=== PATIENT | female | born 1985 | race Caucasian/White ===

== ENCOUNTER 2017-10-20 12:59 | Emergency (ER) | payer OTHER ==
[2017-10-20 13:24] VITALS: BP 158/107
== END 2017-10-20 14:42 | disposition left against medical advice (07) ==
LOC: ED 12:59
DX: Z53.9 Procedure and treatment not carried out, unspecified reason (principal)

== ENCOUNTER 2017-10-22 14:35 | Outpatient (CLI) | payer OTHER ==
--- NOTE | 2017-10-22 17:43 | XRAY Report ---
FOUR VIEW BILATERAL WRISTS: 10/22/2017 CLINICAL INDICATION: Fall, pain. FINDINGS: AP, lateral, oblique, scaphoid views of the bilateral wrists demonstrate no evidence of fracture or dislocation. The joint spaces are preserved. No radiopaque foreign body is seen in the soft tissues. IMPRESSION: NORMAL BILATERAL WRISTS. TD: 10/22/2017 15:47
== END 2017-10-22 14:36 | disposition home or self-care (01) ==
LOC: DI 14:35
PROVIDERS: ATTEND Family Medicine
DX: S63.502A Unspecified sprain of left wrist, initial encounter (principal); S60.211A Contusion of right wrist, initial encounter

== ENCOUNTER 2017-11-25 15:24 | Outpatient (CLI) | payer OTHER ==
--- NOTE | 2017-12-01 18:45 | MRI Report ---
Procedure Date: 11/25/2017 Accession Number: [id number] / [id number] Procedure: MRI - Wrist RT W/O CPT Code: FULL RESULT: EXAM: RIGHT WRIST MRI WITHOUT CONTRAST EXAM DATE: 11/25/2017 04:00 PM. CLINICAL HISTORY: Pain right wrist status post contusion 10/20/17. COMPARISON: Bilateral wrists 10/22/2017. TECHNIQUE: Examination of the right wrist is limited to 3 sequences secondary to patient claustrophobia: 1. Axial T1-weighted. 2. Axial T2-weighted fat saturation. 3. Coronal T1-weighted. FINDINGS: Negative for carpal bone fracture. Negative for distal radius or distal ulna fracture. Uniform intercarpal distance. Evaluation of the intrinsic carpal ligaments compromised on a single coronal T1-weighted sequence. There is a small fluid collection at the distal radioulnar joint. The distal radioulnar joint is negative for dislocation. Unable to assess for triangular fibrocartilage tear on the coronal T1-weighted sequence. The carpal tunnel is grossly normal. Negative for tenosynovitis. Skin markers placed at the dorsal aspect of the distal carpal row with no extensor tenosynovitis identified. There is mild tenosynovitis extensor carpi radialis longus tendon at the radiocarpal compartment. IMPRESSION: 1. Examination compromised secondary to limited coronal T1-weighted, axial T2-weighted fat saturation, and axial T1-weighted acquisitions secondary to patient claustrophobia. 2. Negative for carpal bone fracture. 3. Negative for tenosynovitis as cause for dorsum wrist pain at the site of skin marker. RADIA MUSCULOSKELETAL RADIOLOGY SECTION
== END 2017-11-25 15:25 | disposition home or self-care (01) ==
LOC: DI 15:24
PROVIDERS: ATTEND Family Medicine
DX: S63.502D Unspecified sprain of left wrist, subsequent encounter (principal); S63.501D Unspecified sprain of right wrist, subsequent encounter

== ENCOUNTER 2020-07-08 13:41 | Outpatient (CLI) | payer OTHER ==
[2020-07-09 13:29] VITALS: BP 140/80
--- NOTE | 2020-07-09 13:29 | SLEEP CARE CONSULTATION ---
Information from patient questionnaire entered by Ivonne Mark. I have reviewed and concur with the information entered by Ivonne Mark. This document represents the service I personally performed and the decisions made by me, Leonor Jiménez MD, [facility]. History of Present Illness Service Date and Time: 07/08/2020 1341 Reason for Visit: New patient Chief Complaint: reports: Other (clearance for weight loss surgery) Date of Onset: no symptoms Usual bedtime: 10:30 - 11 pm Time it takes to fall asleep: 10-15 minutes Snores at night: Yes Observed to quit breathing while asleep: No Sleeps alone due to snoring: No Number of times waking at night: none Toss, Turn, or Twitch while sleeping: No Recalls having dreams: Yes Usually gets out of bed at: 7:30- 8 am Feels refreshed in the morning: Yes Morning headache: No Sleepy or fatigued during the day: No Ever fallen asleep while driving: No Takes day naps: No Dreams during day naps: No Prior sleep studies: No Additional HPI information: I have the pleasure of seeing Ms. White today regarding the possibility of her having obstructive sleep apnea. As you know, she is a 34 year old lady who is anticipating bariatric surgery and a sleep study is a required preoperative workup. She states that she snores but her has never seen her quit breathing. She denies waking up frequently at night, choking, unrefreshed sleep, morning headache, and excessive daytime sleepiness. She does not have hypertension or heart disease. - Parasomnia Symptoms Ever been unable to move upon waking from sleep: No Ever felt weak in the knees when startled or emotional: No Bothered by creepy, crawly, restless sensations in legs: No Problems with memory or concentration: No Subjective Initial Eunice Sleepiness Scale score: 0 (in 2020) Past Medical History Past Medical History: reports: Anxiety, Other (high pulse) Social History The patient's occupation is a [employer]. Patient is and lives in [place]. Have you smoked in the past 12 months: No Alcohol use: No Caffeine use: Yes Caffeine amount and frequency: 1-2 black teas a week Family History Family history of sleep disordered breathing: Yes (brother, dad) Family Hx Sleep Apnea: Father: Snoring, Sibling: Sleep apnea - Treated Allergies and Home Medications Drug allergies reviewed: Yes Home medication list reviewed: Yes Review of Systems Weight loss over past 5 years: 10 Cardiovascular: denies: high blood pressure, palpitations, chest pain, irregular heart rate or pulse, leg or foot swelling, have to sleep sitting up, other Respiratory: denies: shortness of breath, wheeze, sputum production, chronic cough, other Gastrointestinal: denies: heartburn, difficulty swallowing, nausea, vomitting, diarrhea, abdominal pain, other Urinary: denies: incontinence, frequency, urgency, impotence, other Neurological: denies: headaches, seizure, head trauma, disorientation, speech dysfunction, gait or balance problems, fainting or unconsciousness, other Psychiatric: reports: anxiety Ear/Nose/Throat: reports: sinus problems Endocrine: denies: thyroid disease, history of goiter, sluggishness, too hot or cold, excessive thirst, increased appetite, increased urination, unexplained weakness, other Musculoskeletal: denies: joint pain, neck pain, back pain, joint swelling, muscle pain or cramping, mobility problems, other Immunologic: denies: sneezing, rash, itching, allergies to food or environment, other Physical Exam Blood Pressure: 140/80 Cuff size: regular Heart Rate: 92 O2 Saturation: 97 Height: 5 ft 8 in Neck circumference: 15.75 HEENT: No craniofacial malformation Nostrils: patent to airflow Turbinates: normal Septum: midline Mouth and throat: narrow oropharynx Soft palate: normal Hard palate: normal Uvula: normal Uvula visualization: 25% Mallampati Class III Tongue: normal in size Tonsils: small Chin and jaw: normal size and position Impression and Plan IMPRESSION: 1. Possible Obstructive Sleep Apnea-Hypopnea Syndrome, as suggested by history of loud snore. Narrow oropharynx and obesity are common predisposing factors for obstructive sleep apnea-hypopnea syndrome. I recommend proceeding to polysomnography to confirm the diagnosis and to assess severity. I informed the patient of what the sleep studies involve and after some discussion, she would like to proceed with a home sleep apnea test (HSAT). Plan: 1. Schedule a home sleep apnea test (HSAT). 2. Avoid long distance driving or when feeling sleepy. 3. Avoid alcohol, sedative and muscle relaxant around bedtime. 4. Attempt to lose weight. 5. Return for follow up after the test. Visit Type: In Office Provider Statement: I spent 100% of the Face to Face Visit with the patient with greater than 50% spent counseling the patient and coordination of care.
== END 2020-07-08 13:42 | disposition home or self-care (01) ==
LOC: SC 13:41
PROVIDERS: ATTEND Internal Medicine Pulmonary Disease
DX: R06.83 Snoring (principal)
CPT/HCPCS: 99202; 99212

== ENCOUNTER 2020-07-26 09:55 | Outpatient (CLI) | payer OTHER | END 2020-07-26 09:56 | disposition home or self-care (01) | LOC: SC 09:55 | PROVIDERS: ATTEND Internal Medicine Pulmonary Disease | DX: G47.33 Obstructive sleep apnea (adult) (pediatric) (principal) | CPT/HCPCS: 95806 ==

== ENCOUNTER 2020-08-05 15:44 | Outpatient (CLI) | payer OTHER ==
--- NOTE | 2020-08-05 16:10 | SLEEP CARE CONSULTATION ---
Information from patient questionnaire entered by Mackenzie Velez. I have reviewed and concur with the information entered by Mackenzie Velez. This document represents the service I personally performed and the decisions made by me, Leonor Jiménez MD, [facility]. History of Present Illness Service Date and Time: 08/05/2020 1544 Initial Harrah Sleepiness Scale score: 0 (in 2020) Current Harrah Sleepiness Scale score: 0 Additional HPI information: HPI: Ms. White returned for follow up of the home sleep apnea test (HSAT) she had on 07/26/2020. The test showed moderate obstructive sleep apnea-hypopnea with an AHI of 20.9 and yoshi oxygen saturation of 85%. The respiratory events occurred more frequently during supine sleep. The patient was informed of these findings. I explained to her the pathophysiology behind obstructive sleep apnea. We then spent quite a bit of time discussing different treatment options. For mild obstructive sleep apnea, surgery and oral appliance are alternatives to nasal CPAP therapy but in moderate or severe cases, nasal CPAP is the most effective and reliable treatment. After some discussion, she opted to go with the nasal CPAP therapy. I explained to her how CPAP machine works and what to expect when using the machine. She is encouraged to use CPAP every night especially in the first 2 to 3 nights in order to get used to it. 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 Sleep Study - Results Type of Sleep Study: Home sleep study Prior sleep studies: No Allergies and Home Medications Drug allergies reviewed: Yes Home medication list reviewed: Yes Review of Systems Review of systems same as previous: Yes Physical Exam Height: 5 ft 8 in Weight: 200 lb Body Mass Index: 30.4 BMI Classification: Obese Impression and Plan IMPRESSION: 1. Obstructive Sleep Apnea-Hypopnea Syndrome, moderate, associated with mild hypoxemia. The patient does not have much of any symptom. She will have a bariatric surgery soon. As mentioned above, the patient will be started on autoCPAP set between 5 and 15 cmH2O. Depending on her response and compliance she may be brought back for an overnight CPAP titration study. PLAN: 1. Prescription made for an autoCPAP, heated humidifier, and related supplies. 2. Attempt to lose weight. Bariatric surgery appears indicated. 3. Return for follow up after one month of using the CPAP. Visit Type: In Office Time Spent with Patient (minutes): 15 Provider Statement: I spent 100% of the Face to Face Visit with the patient with greater than 50% spent counseling the patient and coordination of care.
== END 2020-08-05 15:45 | disposition home or self-care (01) ==
LOC: SC 15:44
PROVIDERS: ATTEND Internal Medicine Pulmonary Disease
DX: G47.33 Obstructive sleep apnea (adult) (pediatric) (principal); E66.9 Obesity, unspecified; Z68.30 Body mass index [BMI] 30.0-30.9, adult
CPT/HCPCS: 99212